=== PATIENT | male | born 1950 | race Caucasian/White ===

== ENCOUNTER → 2020-02-16 | Outpatient (CLI) | payer MEDICARE | END | disposition home or self-care (01) | LOC: CVU 07:38 | PROVIDERS: ATTEND Nurse Practitioner Family | DX: I08.8 Other rheumatic multiple valve diseases (principal); I49.9 Cardiac arrhythmia, unspecified | CPT/HCPCS: 93306; 93356 ==

== ENCOUNTER → 2020-05-01 | Outpatient (CLI) | payer MEDICARE | END | disposition home or self-care (01) | LOC: CFH 07:41 | PROVIDERS: ATTEND Internal Medicine Clinical Cardiac Electrophysiology | DX: I42.9 Cardiomyopathy, unspecified (principal) | CPT/HCPCS: 78452; 93017; A9502 ==

== ENCOUNTER 2020-06-15 07:30 | Day surgery (SDC) | payer MEDICARE ==
[~2020-06-15] VITALS: Ht 175.3 cm; Wt 106.8 kg
[2020-06-15 07:50] VITALS: BP 160/88
[2020-06-15] MEDS ORDERED: METO-93 PO (08:10)
[2020-06-15] MEDS ORDERED: DIPH50CA62 PO (08:10)
[2020-06-15] MEDS ORDERED: GABA300C PO (08:10)
[2020-06-15] MEDS ORDERED: ASPI81TA45 PO (08:10)
[2020-06-15] MEDS ORDERED: ATOR40TA78 PO (08:15)
[2020-06-15] MEDS ORDERED: ERYT30GE2 TP (08:15)
[2020-06-15 08:17] LABS: BASOPHILS % (AUTO) 1 % (0-1); EOSINOPHILS % (AUTO) 2 % (1-7); LYMPHOCYTES % (AUTO) 30 % (22-44); MEAN CORPUSCULAR HEMOGLOBIN 30.6 pg (27.5-34.5); MEAN CORPUSCULAR HGB CONC 33.8 g/dL (33.2-36.2); MONOCYTES % (AUTO) 7 % (2-9); NEUTROPHILS % (AUTO) 61 % (42-75); PLATELET COUNT 189 x10^3/uL (130-400); RED BLOOD COUNT 4.93 x10^6/uL (4.38-5.82); RED CELL DISTRIBUTION WIDTH 14.4 % (9.4-14.8)
[2020-06-15 08:26] LABS: ANION GAP 6 mmol/L (5-15); CHLORIDE 114 mmol/L (98-107)
[2020-06-15 08:27] LABS: CREATININE 0.99 mg/dL (0.7-1.3)
[2020-06-15 09:36] LABS: MD SCAN
[2020-06-15] MEDS ORDERED: LIDOCAINE-MPF 1%, 5ML ONE (12:21)
[2020-06-15] MEDS ORDERED: VERAPAMIL 2.5 MG/ML, 2ML ONE (12:21)
[2020-06-15] MEDS ORDERED: BIVALIRUDIN 250 MG ONE (12:21)
[2020-06-15] MEDS ORDERED: TICAGRELOR 90 MG TABLET ONE (12:21)
[2020-06-15] MEDS ORDERED: FENTANYL PF 100 MCG/2ML ONE (12:21)
[2020-06-15] MEDS ORDERED: MIDAZOLAM 1 MG/ML, 5ML ONE (12:21)
[2020-06-15] MEDS ORDERED: HEPARIN 1,000 UNITS/ML, 10ML ONE (12:21)
[2020-06-15] MEDS ORDERED: LIDOCAINE 2%, 20ML ONE (12:54)
[2020-06-15] MEDS ORDERED: SODIUM CHLORIDE 0.9% 1,000 ML IV SCH (13:30)
== END 2020-06-15 16:36 | disposition home or self-care (01) ==
LOC: CACL 07:30
PROVIDERS: ATTEND Internal Medicine Cardiovascular Disease
DX: I25.10 Atherosclerotic heart disease of native coronary artery without angina pectoris (principal); I49.1 Atrial premature depolarization; I42.9 Cardiomyopathy, unspecified; G47.33 Obstructive sleep apnea (adult) (pediatric); Z91.048 Other nonmedicinal substance allergy status; Z79.82 Long term (current) use of aspirin; Z79.2 Long term (current) use of antibiotics; Z79.899 Other long term (current) drug therapy; Z98.890 Other specified postprocedural states
CPT/HCPCS: 36415; 80048; 85025; 93458; 99156; 99157; C1760; C1769; C1894; J0583; J1644; J2250; J3010; Q9967